=== PATIENT | female | born 1930 | race Caucasian/White ===

== ENCOUNTER 2017-02-14 11:40 | Emergency (ER) | payer MEDICARE ==
[~2017-02-14] VITALS: Ht 165.1 cm; Wt 59.0 kg
[2017-02-14 11:40] VITALS: BP_SYST 126
[2017-02-14] MEDS ORDERED: D5/0.45 NS 1,000 ML IV ONE (12:00)
[2017-02-14] MEDS ORDERED: MELA1LIQ PO (12:02)
[2017-02-14] MEDS ORDERED: TRAM50TA92 PO (12:02)
[2017-02-14] MEDS ORDERED: COU2 PO (12:02)
[2017-02-14] MEDS ORDERED: GLIP5TAB13 PO (12:02)
[2017-02-14] MEDS ORDERED: MELA2.5T PO (12:02)
[2017-02-14] MEDS ORDERED: ALEN70TA27 PO (12:02)
[2017-02-14] MEDS ORDERED: DIGO125T20 PO (12:02)
[2017-02-14] MEDS ORDERED: LOSA100T15 PO (12:02)
[2017-02-14] MEDS ORDERED: OXYC5TAB84 PO (12:02)
[2017-02-14] MEDS ORDERED: LOVA40TA75 PO (12:02)
[2017-02-14] MEDS ORDERED: HYDR25TA4 PO (12:02)
[2017-02-14] MEDS ORDERED: TRAZ-123 PO (12:02)
[2017-02-14] MEDS ORDERED: METO50TA3 PO (12:02)
[2017-02-14] MEDS ORDERED: METF-510 PO (12:02)
[2017-02-14] MEDS ORDERED: ONDANSETRON HCL 4 MG/2 ML VIAL IVP ONE (12:15)
[2017-02-14 12:17] LABS: BASOPHILS % (AUTO) 0.5 % (0.0-2.0); EOSINOPHILS # (AUTO) 0.1 K/uL (0.0-0.4); EOSINOPHILS % (AUTO) 0.8 % (0.0-4.0); HEMATOCRIT 32.9 % (36-48); HEMOGLOBIN 10.9 g/dL (12.0-16.0); LYMPHOCYTES # (AUTO) 1.1 K/uL (1.0-5.5); LYMPHOCYTES % (AUTO) 16.3 % (20.5-51.5); MEAN CORPUSCULAR HEMOGLOBIN 31 pg (27-31); MEAN CORPUSCULAR HGB CONC 33 % (32-36); MEAN CORPUSCULAR VOLUME 93 fL (79.0-98.0); MONOCYTES # (AUTO) 0.5 K/uL (0.0-1.0); MONOCYTES % (AUTO) 6.8 % (1.7-9.3); NEUTROPHILS # (AUTO) 5.2 K/uL (1.8-7.7); NEUTROPHILS % (AUTO) 75.6 % (40.0-70.0); PLATELET COUNT (AUTO) 262 K/uL (130-430); RED BLOOD CELL COUNT(AUTO) 3.55 MIL/uL (4.2-6.2); RED CELL DISTRIBUTION WIDTH 12.6 % (9.0-15.0); WHITE BLOOD COUNT (AUTO) 6.9 K/uL (4.8-10.8)
[2017-02-14 12:26] LABS: ANION GAP 9 (5-15); CALCIUM 9.1 mg/dL (8.4-11.0); CHLORIDE 99 mmol/L (98-107); CREATININE 0.93 mg/dL (0.55-1.30); GLUCOSE 113 mg/dL (70-99); POTASSIUM 3.8 mmol/L (3.5-5.1); SODIUM SERUM 133 mmol/L (136-145); UREA NITROGEN, BLOOD 21 mg/dL (8-21)
[2017-02-14 12:32] LABS: ALANINE AMINOTRANSFERASE 21 U/L (12-78); ALBUMIN 2.7 g/dL (3.4-4.8); ASPARTATE AMINOTRANSFERASE 23 U/L (10-37); CREATINE KINASE, TOTAL 22 U/L (26-192); DIGOXIN 1.1 ng/mL (0.80-2.00); TOTAL BILIRUBIN 0.2 mg/dL (0.0-1.0); TOTAL PROTEIN, SERUM 7.2 g/dL (6.4-8.3)
[2017-02-14 13:12] LABS: INR 8.1 (0.8-1.2); PROTHROMBIN TIME 93.9 SECS (9.5-12.5)
[2017-02-14 16:15] VITALS: BP_SYST 115
== END 2017-02-14 16:15 | disposition short-term general hospital (02) ==
LOC: SED 11:40
DX: E11.649 Type 2 diabetes mellitus with hypoglycemia without coma (principal); I48.91 Unspecified atrial fibrillation; Z88.2 Allergy status to sulfonamides; Z88.1 Allergy status to other antibiotic agents; Z88.8 Allergy status to other drugs, medicaments and biological substances; Z79.4 Long term (current) use of insulin; Z79.899 Other long term (current) drug therapy
CPT/HCPCS: 36415; 70450; 71010; 80053; 80162; 82550; 82962; 83880; 84484; 85025; 85610; 85730; 93005; 96361; 96374; 99285; J2405

== ENCOUNTER 2017-04-05 18:15 | Emergency (ER) | payer MEDICARE ==
[~2017-04-05] VITALS: Ht 160 cm; Wt 54.4 kg
[2017-04-05 18:15] VITALS: BP_SYST 183
[~2017-04-05 18:15] MED LIST: ALEN70TA27 PO; COU2 PO; DIGO125T20 PO; GLIP5TAB13 PO; HYDR25TA4 PO; LOSA100T15 PO; LOVA40TA75 PO; MELA1LIQ PO; MELA2.5T PO; METF-510 PO; METO50TA3 PO; OXYC5TAB84 PO; TRAM50TA92 PO; TRAZ-123 PO
--- NOTE | 2017-04-05 18:15 | NUR ---
BROUGHT IN BY [facility], PLACED IN BED #1 AND TRIAGED. REPORT GIVEN TO ERMELINDA
--- NOTE | 2017-04-05 18:20 | NUR ---
Patient brought in via BLS from [facility]. Patient reports she was sitting in a "rolling chair" and slipped out and hit the top of her head. Small raised bump noted to top of head. Denies any KO. Patient is A & O x 4. Denies any pain. No other complaints/injuries per patient or as noted.
[2017-04-05 18:49] LABS: BASOPHILS # (AUTO) 0.1 K/uL (0.0-0.2); BASOPHILS % (AUTO) 0.6 % (0.0-2.0); EOSINOPHILS % (AUTO) 0.5 % (0.0-4.0); HEMATOCRIT 35.8 % (36-48); HEMOGLOBIN 11.9 g/dL (12.0-16.0); LYMPHOCYTES % (AUTO) 21.5 % (20.5-51.5); MEAN CORPUSCULAR HEMOGLOBIN 30 pg (27-31); MEAN CORPUSCULAR HGB CONC 33 % (32-36); MEAN CORPUSCULAR VOLUME 91 fL (79.0-98.0); MONOCYTES # (AUTO) 0.7 K/uL (0.0-1.0); MONOCYTES % (AUTO) 7.3 % (1.7-9.3); NEUTROPHILS # (AUTO) 6.7 K/uL (1.8-7.7); NEUTROPHILS % (AUTO) 70.1 % (40.0-70.0); PLATELET COUNT (AUTO) 265 K/uL (130-430); RED BLOOD CELL COUNT(AUTO) 3.92 MIL/uL (4.2-6.2); RED CELL DISTRIBUTION WIDTH 12.6 % (9.0-15.0); WHITE BLOOD COUNT (AUTO) 9.5 K/uL (4.8-10.8)
[2017-04-05 18:52] LABS: ANION GAP 8 (5-15); CALCIUM 9.2 mg/dL (8.4-11.0); CHLORIDE 97 mmol/L (98-107); CREATININE 1.09 mg/dL (0.55-1.30); GLUCOSE 207 mg/dL (70-99); POTASSIUM 4.2 mmol/L (3.5-5.1); SODIUM SERUM 134 mmol/L (136-145); UREA NITROGEN, BLOOD 14 mg/dL (8-21)
--- NOTE | 2017-04-05 19:00 | NUR ---
Assumed care. Patient AAOx4, stable. No signs of distress noted.
[2017-04-05 19:01] LABS: ALANINE AMINOTRANSFERASE 16 U/L (12-78); ALBUMIN 3.4 g/dL (3.4-4.8); ALCOHOL, BLOOD 3 mg/dL (<10); ASPARTATE AMINOTRANSFERASE 20 U/L (10-37); DIGOXIN 0.9 ng/mL (0.80-2.00); TOTAL BILIRUBIN 0.6 mg/dL (0.0-1.0)
[2017-04-05 19:09] LABS: PROTHROMBIN TIME 46.8 SECS (9.5-12.5)
[2017-04-05 19:10] LABS: INR 4.1 (0.8-1.2)
[2017-04-05 19:20] LABS: FREE T4 (FREE THYROXINE) 1.5 ng/dL (0.6-1.6)
--- NOTE | 2017-04-05 20:30 | NUR ---
NIKI Meredith at bedside examining patient.
--- NOTE | 2017-04-05 20:33 | NUR ---
# 14 FR In and Out catheter with use of sterile technique. Immediate return of 100 ml yellow urine noted. Urine sample collected and sent to lab. Pt tolerated procedure well.
[2017-04-05 20:42] LABS: BILIRUBIN,URINE NEGATIVE (NEGATIVE); BLOOD, URINE NEGATIVE (NEGATIVE); CLARITY/URINE CLEAR (CLEAR); COLOR,URINE YELLOW (YELLOW); GLUCOSE,URINE TRACE (NEGATIVE); KETONES,URINE NEGATIVE (NEGATIVE); LEUKOCYTE ESTERASE ,URINE NEGATIVE (NEGATIVE); NITRITE, URINE NEGATIVE (NEGATIVE); PH,URINE 6.5 (5.0-8.0); PROTEIN URINE TRACE (NEGATIVE); UROBILINOGEN,URINE 0.2 (0.2-1.0)
[2017-04-05 20:51] LABS: BARBITURATE, URINE NEGATIVE (NEG <=200); BENZODIAZEPINE, URINE NEGATIVE (NEG <=150); CANNABINOID, URINE NEGATIVE (NEG <=50); COCAINE, URINE NEGATIVE (NEG <=150); METHAMPHETAMINES SCREEN,URINE NEGATIVE (NEG <=500); OPIATE, URINE NEGATIVE (NEG <=100); PHENCYCLIDINE SCREEN,URINE NEGATIVE (NEG <=25); UR TRICYCLIC ANTIDEPRESSANTS NEGATIVE (NEG <=300); URINE AMPHETAMINE NEGATIVE (NEG <=500); URINE METHADONE NEGATIVE (NEG <=200); URINE OXYCODONE SCREEN NEGATIVE (NEG <=100); URINE PROPOXYPHENE SCREEN NEGATIVE (NEG <=300)
[2017-04-05 20:52] LABS: BACTERIA,URINE FEW /HPF (None Seen); COARSE GRANULAR CASTS,URINE 0-1 /LPF (None Seen); FINE GRANULAR CASTS,URINE 0-1 /LPF (None Seen); MUCUS,URINE 1+ /LPF (None Seen); RBC,URINE 0-3 /HPF (0-3); WBC,URINE 0-3 /HPF (0-3)
--- NOTE | 2017-04-05 21:00 | NUR ---
Patient is medically cleared per MD. Called daughter for transport, daughter states she cannot pick her up.
[2017-04-05] MEDS ORDERED: cloNIDine HCL 0.1 MG TABLET PO ONE ×2 (22:30→22:45)
[2017-04-05 22:58] VITALS: BP_SYST 178
--- NOTE | 2017-04-05 22:58 | NUR ---
Patient stable, no signs of distress noted. Patient denies any complaints at this time.
--- NOTE | 2017-04-05 22:58 | NUR ---
Summary report, copy of CT result, and copy of EKG placed in transfer packet for patient.
--- NOTE | 2017-04-05 22:58 | NUR ---
Paramedics given written and verbal discharge instructions and verbalizes understanding. ER MD discussed with patient the results and treatment provided. Patient in stable condition. ID arm band removed. IV catheter removed intact and dressing applied, no active bleeding. Patient educated on pain management and to follow up with PMD. Pain Scale 0/10. Opportunity for questions provided and answered.
--- NOTE | 2017-04-05 23:20 | NUR ---
Called [facility] to give report to an RN at the facility. Staff member states patient is already at facility and did not request a report over the phone.
== END 2017-04-05 22:58 | disposition home or self-care (01) ==
LOC: SED 18:15
DX: S09.90XA Unspecified injury of head, initial encounter (principal); I48.91 Unspecified atrial fibrillation; E11.9 Type 2 diabetes mellitus without complications; M81.0 Age-related osteoporosis without current pathological fracture; Z90.710 Acquired absence of both cervix and uterus; Z79.899 Other long term (current) drug therapy; Z88.2 Allergy status to sulfonamides; Z88.1 Allergy status to other antibiotic agents; Z88.8 Allergy status to other drugs, medicaments and biological substances; W07.XXXA Fall from chair, initial encounter; Y93.89 Activity, other specified; Y92.89 Other specified places as the place of occurrence of the external cause; Y99.8 Other external cause status
CPT/HCPCS: 36415; 70450; 71010; 74000; 80053; 80162; 80307; 81000; 82140; 83605; 83880; 84439; 84484; 85025; 85610; 87040; 93005; 99285; G0482

== ENCOUNTER 2017-04-07 09:15 | Emergency (ER) | payer MEDICARE ==
[~2017-04-07] VITALS: Ht 160 cm; Wt 54.4 kg
[2017-04-07 09:15] VITALS: BP_SYST 179
--- NOTE | 2017-04-07 09:38 | NUR ---
Patient placed to bed 4. Gown on for exam. Placed on boss miner, pulse ox, bp cuff. Side rails up. Received report from CHANTELLE Rosas. Patient, awake, alert and oriented x 2, from [facility] for mechanical fall. Upon arrival, patient was found on the ground in her room by [facility] staff, states she fell on her left upper extermity, head did not hit ground, and no KO. Patient has full range of motion, unable to close left hand without pain, swelling to left wrist and tender to touch. Able to follow commands has history of confusion. No other complaints, injuries per patient, none noted.
--- NOTE | 2017-04-07 09:42 | NUR ---
Dr. Dunlap at bedside examining patient.
--- NOTE | 2017-04-07 09:42 | NUR ---
Radiology at bedside. Patient tolerated well. No signs of distress, vss.
[2017-04-07] MEDS ORDERED: ACETAMINOPHEN 325 MG TABLET PO ONE (10:00)
--- NOTE | 2017-04-07 10:30 | NUR ---
Patient applied splint to left wrist.
--- NOTE | 2017-04-07 10:48 | NUR ---
Patient off unit to radiology.
--- NOTE | 2017-04-07 10:56 | NUR ---
Patient returned from radiology, tolerated well. No signs of distress, vss noted.
--- NOTE | 2017-04-07 11:25 | NUR ---
Patient resting quietly. No acute distress noted. Vital signs within normal range.
[2017-04-07 12:50] VITALS: BP_SYST 172
--- NOTE | 2017-04-07 12:51 | NUR ---
Patient given written and verbal discharge instructions and verbalizes understanding. ER MD discussed with patient the results and treatment provided. Patient in stable condition. ID arm band removed. No RX given. Patient educated on pain management and to follow up with PMD. Pain Scale 0/10. Opportunity for questions provided and answered.
== END 2017-04-07 12:50 | disposition home or self-care (01) ==
LOC: SED 09:15
DX: M25.532 Pain in left wrist (principal); I48.91 Unspecified atrial fibrillation; M81.0 Age-related osteoporosis without current pathological fracture; E11.9 Type 2 diabetes mellitus without complications; R51 Headache; Z88.2 Allergy status to sulfonamides; Z88.1 Allergy status to other antibiotic agents; Z79.899 Other long term (current) drug therapy
CPT/HCPCS: 70450-TC; 72125-TC; 93005; 99284

== ENCOUNTER 2017-05-15 12:34 | Emergency (ER) | payer MEDICARE ==
[~2017-05-15] VITALS: Ht 160 cm; Wt 61.2 kg
[2017-05-15 12:34] VITALS: BP_SYST 150
[~2017-05-15 12:34] MED LIST changes: -GLIP5TAB13 PO
[2017-05-15] MEDS ORDERED: DOCU-144 PO (12:58)
[2017-05-15] MEDS ORDERED: ACET325T53 PO (12:58)
[2017-05-15] MEDS ORDERED: LACT10SO66 PO (12:58)
[2017-05-15] MEDS ORDERED: CEL20 PO (12:58)
[2017-05-15 13:12] LABS: BILIRUBIN,URINE NEGATIVE (NEGATIVE); BLOOD, URINE NEGATIVE (NEGATIVE); CLARITY/URINE SL HAZY (CLEAR); COLOR,URINE YELLOW (YELLOW); GLUCOSE,URINE TRACE (NEGATIVE); KETONES,URINE NEGATIVE (NEGATIVE); LEUKOCYTE ESTERASE ,URINE NEGATIVE (NEGATIVE); NITRITE, URINE NEGATIVE (NEGATIVE); PROTEIN URINE TRACE (NEGATIVE); UROBILINOGEN,URINE 0.2 (0.2-1.0)
[2017-05-15 13:25] LABS: BARBITURATE, URINE NEGATIVE (NEG <=200); BENZODIAZEPINE, URINE NEGATIVE (NEG <=150); CANNABINOID, URINE NEGATIVE (NEG <=50); COCAINE, URINE NEGATIVE (NEG <=150); METHAMPHETAMINES SCREEN,URINE NEGATIVE (NEG <=500); OPIATE, URINE NEGATIVE (NEG <=100); PHENCYCLIDINE SCREEN,URINE NEGATIVE (NEG <=25); UR TRICYCLIC ANTIDEPRESSANTS NEGATIVE (NEG <=300); URINE AMPHETAMINE NEGATIVE (NEG <=500); URINE METHADONE NEGATIVE (NEG <=200); URINE OXYCODONE SCREEN NEGATIVE (NEG <=100); URINE PROPOXYPHENE SCREEN NEGATIVE (NEG <=300)
[2017-05-15 13:33] LABS: BASOPHILS % (AUTO) 0.2 % (0.0-2.0); EOSINOPHILS % (AUTO) 0.3 % (0.0-4.0); HEMATOCRIT 37.9 % (36-48); HEMOGLOBIN 12.2 g/dL (12.0-16.0); LYMPHOCYTES # (AUTO) 0.8 K/uL (1.0-5.5); MEAN CORPUSCULAR HEMOGLOBIN 30 pg (27-31); MEAN CORPUSCULAR HGB CONC 32 % (32-36); MEAN CORPUSCULAR VOLUME 92 fL (79.0-98.0); MONOCYTES # (AUTO) 0.4 K/uL (0.0-1.0); MONOCYTES % (AUTO) 3.4 % (1.7-9.3); NEUTROPHILS # (AUTO) 11.3 K/uL (1.8-7.7); NEUTROPHILS % (AUTO) 90.1 % (40.0-70.0); PLATELET COUNT (AUTO) 329 K/uL (130-430); RED BLOOD CELL COUNT(AUTO) 4.15 MIL/uL (4.2-6.2); RED CELL DISTRIBUTION WIDTH 12.3 % (9.0-15.0); WHITE BLOOD COUNT (AUTO) 12.5 K/uL (4.8-10.8)
[2017-05-15 13:50] LABS: ANION GAP 9 (5-15); CALCIUM 8.8 mg/dL (8.4-11.0); CHLORIDE 98 mmol/L (98-107); CREATININE 1.47 mg/dL (0.55-1.30); GLUCOSE 391 mg/dL (70-99); POTASSIUM 4.6 mmol/L (3.5-5.1); SODIUM SERUM 136 mmol/L (136-145); UREA NITROGEN, BLOOD 31 mg/dL (8-21)
[2017-05-15 13:52] LABS: INR 1.2 (0.8-1.2); PROTHROMBIN TIME 12.6 SECS (9.5-12.5)
[2017-05-15 13:55] LABS: ALANINE AMINOTRANSFERASE 33 U/L (12-78); ASPARTATE AMINOTRANSFERASE 28 U/L (10-37); DIGOXIN 1.3 ng/mL (0.80-2.00); TOTAL BILIRUBIN 0.5 mg/dL (0.0-1.0)
[2017-05-15 13:56] LABS: ALCOHOL, BLOOD < 3 mg/dL (<10)
[2017-05-15 14:10] LABS: ACETAMINOPHEN < 1 ug/mL (1-30)
[2017-05-15] MEDS ORDERED: NACL 0.9% 1,000 ML IV ONE ×2 (14:30→17:15)
[2017-05-15 17:26] VITALS: BP_SYST 157
== END 2017-05-15 17:26 | disposition short-term general hospital (02) ==
LOC: SED 12:34
DX: E11.65 Type 2 diabetes mellitus with hyperglycemia (principal); E86.0 Dehydration; I48.91 Unspecified atrial fibrillation; M81.0 Age-related osteoporosis without current pathological fracture; Z88.2 Allergy status to sulfonamides; Z88.1 Allergy status to other antibiotic agents; Z88.8 Allergy status to other drugs, medicaments and biological substances; Z79.899 Other long term (current) drug therapy
CPT/HCPCS: 36415; 51702; 70450; 71010; 80053; 80162; 80307; 81003; 82140; 82272; 82962; 83605; 84484; 85025; 85610; 85730; 93005; 96360; 99285; G0480; G0481; G0482; J7030

== ENCOUNTER 2017-06-08 19:57 | Emergency (ER) | payer MEDICARE ==
[~2017-06-08] VITALS: Ht 160 cm; Wt 59.0 kg
[~2017-06-08 19:57] MED LIST changes: +ACET325T53 PO; +CEL20 PO; -COU2 PO; +DOCU-144 PO; +LACT10SO66 PO; -MELA2.5T PO; -OXYC5TAB84 PO
[2017-06-08 20:02] VITALS: BP_SYST 152
[2017-06-08] MEDS ORDERED: MEMA10TA21 PO (20:23)
[2017-06-08] MEDS ORDERED: MAGN400T10 PO (20:23)
[2017-06-08] MEDS ORDERED: KETOROLAC TROMETHAMINE 60 MG/2 ML VIAL IM ONE (21:00)
[2017-06-08 21:28] VITALS: BP_SYST 157
== END 2017-06-08 21:28 ==
LOC: SED 19:57
DX: S43.402A Unspecified sprain of left shoulder joint, initial encounter (principal); E11.9 Type 2 diabetes mellitus without complications; I48.91 Unspecified atrial fibrillation; M81.0 Age-related osteoporosis without current pathological fracture; M79.7 Fibromyalgia; Z90.89 Acquired absence of other organs; Z90.710 Acquired absence of both cervix and uterus; Z88.2 Allergy status to sulfonamides; Z88.1 Allergy status to other antibiotic agents; Z88.8 Allergy status to other drugs, medicaments and biological substances; Z79.899 Other long term (current) drug therapy; W19.XXXA Unspecified fall, initial encounter; Y93.89 Activity, other specified; Y92.89 Other specified places as the place of occurrence of the external cause; Y99.8 Other external cause status
CPT/HCPCS: 73000; 73030; 73060; 96372; 99284; J1885